=== PATIENT | female | born 1995 | race Two or more races ===

== ENCOUNTER 2022-11-06 19:32 | Emergency (ER) | payer OTHER ==
[~2022-11-06] VITALS: Ht 167.6 cm; Wt 84.0 kg
[2022-11-06 20:51] LABS: Urine Bacteria NONE SEEN /hpf (None Seen); Urine Blood Negative /uL (Negative); Urine Clarity Clear (Clear); Urine Color Yellow (Yellow); Urine Protein, UAD Negative (Negative); Urine Specific Gravity 1.023 (1.001-1.035); Urine WBC 1 /hpf (0 - 5); Urine pH 7.5 (5.0-8.0)
[2022-11-06 22:30] VITALS: BP 129/77; PULSE 85; RESP 16; TEMP 98.1; O2SAT 97
== END 2022-11-06 23:00 | disposition home or self-care (01) ==
LOC: ER 19:32
DX: M25.512 Pain in left shoulder (principal)
CPT/HCPCS: 73030; 81001; 81025